=== PATIENT | male | born 1965 | race Caucasian/White ===

== ENCOUNTER 2022-02-02 16:21 | Emergency (ER) | payer OTHER ==
[2022-02-02 17:25] LABS: HEMOGLOBIN 15.2 gm/dl (14.0-17.5); RED BLOOD COUNT 4.66 M/UL (4.20-5.50); WHITE BLOOD COUNT 8.3 K/UL (4.5-11.0)
[2022-02-02 17:40] LABS: BUN/CREATININE RATIO 14 (0-10)
[2022-02-02] MEDS ORDERED: HYDROCODON-ACE1 EAC4 PO (19:52)
== END 2022-02-02 20:02 | disposition home or self-care (01) ==
LOC: ER1 16:21
PROVIDERS: Physician Assistant
DX: G89.18 Other acute postprocedural pain (principal); M79.642 Pain in left hand
CPT/HCPCS: 73130; 80053; 83605; 85025; 85652; 86140; 87040; 96374; 96375; 99283; J0690; J2270; J7030